=== PATIENT | male | born 1965 | race Asian ===

== ENCOUNTER 2020-02-29 09:59 | Emergency (ER) | payer OTHER ==
[~2020-02-29] VITALS: Ht 167.6 cm; Wt 73.8 kg
[2020-02-29] MEDS ORDERED: AUGM875T28 PO (11:53)
[2020-02-29] MEDS ORDERED: AUGMENTIN 875 MG TAB PO ONE (12:00)
[2020-02-29] MEDS ORDERED: BOOSTRIX/ADACEL VACCINE (DIPHTH/PERTUSS/ACELL/TETANUS) 0.5ML SYR IM ONE (12:00)
[2020-02-29 12:28] VITALS: BP 144/87
== END 2020-02-29 12:30 | disposition home or self-care (01) ==
LOC: M ED 09:59
DX: S71.131A Puncture wound without foreign body, right thigh, initial encounter (principal); W54.0XXA Bitten by dog, initial encounter; Y92.511 Restaurant or cafe as the place of occurrence of the external cause; Y99.0 Civilian activity done for income or pay